=== PATIENT | female | born 1990 | race Caucasian/White ===

== ENCOUNTER 2019-06-26 07:04 | Emergency (ER) | payer OTHER ==
[~2019-06-26] VITALS: Ht 157.5 cm; Wt 65.0 kg
[2019-06-26] MEDS ORDERED: proparacaine 0.5% ophthalmic drops 15ml EACHEYE ONE (08:30)
[2019-06-26] MEDS ORDERED: proCHLORperazine 10 MG/2 ml inj IM ONE (08:30)
[2019-06-26] MEDS ORDERED: diphenhydrAMINE 50 mg/ml inj IM ONE (08:30)
--- NOTE | 2019-06-26 08:42 | NUR ---
VISUAL ACUITY COMPLETED, PT BACK TO BED AND BROUGHT TO CT NOW BY SERVICE PLUMBER PER ORDERS
[2019-06-26] MEDS ORDERED: IBUP-1984 PO (09:55)
[2019-06-26] MEDS ORDERED: AMOX-580 PO (09:55)
[2019-06-26 10:05] VITALS: BP 103/60
== END 2019-06-26 10:00 | disposition home or self-care (01) ==
LOC: ER 07:05
DX: J32.9 Chronic sinusitis, unspecified (principal); G43.909 Migraine, unspecified, not intractable, without status migrainosus; F12.90 Cannabis use, unspecified, uncomplicated; F15.90 Other stimulant use, unspecified, uncomplicated; Z98.890 Other specified postprocedural states; Z79.2 Long term (current) use of antibiotics; Z79.899 Other long term (current) drug therapy
CPT/HCPCS: 70450; 96372; 99284; J0780; J1200

== ENCOUNTER 2019-07-10 14:03 | Emergency (ER) | payer OTHER ==
[~2019-07-10] VITALS: Ht 157.5 cm; Wt 64.5 kg
[~2019-07-10 14:03] MED LIST: AMOX-580 PO; IBUP-1984 PO
[2019-07-10 14:23] VITALS: BP 111/72
== END 2019-07-10 15:27 | disposition home or self-care (01) ==
LOC: ER 14:05
DX: J32.9 Chronic sinusitis, unspecified (principal); F12.90 Cannabis use, unspecified, uncomplicated; F15.90 Other stimulant use, unspecified, uncomplicated; F17.210 Nicotine dependence, cigarettes, uncomplicated; Z90.89 Acquired absence of other organs
CPT/HCPCS: 99281

== ENCOUNTER 2021-10-02 22:49 | Emergency (ER) | payer SELFPAY ==
[~2021-10-02] VITALS: Ht 157.5 cm; Wt 68.2 kg
[2021-10-02 23:00] VITALS: BP 121/76
== END 2021-10-03 01:44 | disposition left against medical advice (07) ==
LOC: ER 22:49
DX: S61.412A Laceration without foreign body of left hand, initial encounter (principal); Z53.21 Procedure and treatment not carried out due to patient leaving prior to being seen by health care provider; X58.XXXA Exposure to other specified factors, initial encounter; Y93.9 Activity, unspecified; Y92.9 Unspecified place or not applicable; Y99.9 Unspecified external cause status

== ENCOUNTER 2024-04-26 22:02 | Emergency (ER) | payer MEDICAID ==
[~2024-04-26] VITALS: Ht 157.5 cm; Wt 89.0 kg
[2024-04-27] MEDS ORDERED: AZIT-164 PO (00:34)
[2024-04-27] MEDS ORDERED: DEC4T PO (00:34)
[2024-04-27] MEDS ORDERED: ALBU8HFA INH (00:39)
[2024-04-27] MEDS: albuterol 2.5 MG/3 ML nebule NEB ONE (00:48)
[2024-04-27 00:49] VITALS: PULSE 87; RESP 16; O2SAT 97
[2024-04-27 01:04] VITALS: PULSE 92; RESP 16; O2SAT 100
[2024-04-27] MEDS: azithromycin 250mg tablet PO ONE (01:06)
[2024-04-27] MEDS: DEXAMETHASONE 6 MG TABLET PO ONE (01:07)
[2024-04-27 01:31] VITALS: BP 97/60; PULSE 101; RESP 18; TEMP 98.3; O2SAT 98
== END 2024-04-27 01:35 | disposition home or self-care (01) ==
LOC: ER 22:02
DX: J40 Bronchitis, not specified as acute or chronic (principal); Z20.822 Contact with and (suspected) exposure to COVID-19; B34.9 Viral infection, unspecified; J18.1 Lobar pneumonia, unspecified organism; R51.9 Headache, unspecified; F12.90 Cannabis use, unspecified, uncomplicated; F15.90 Other stimulant use, unspecified, uncomplicated; Z79.2 Long term (current) use of antibiotics; Z79.899 Other long term (current) drug therapy; Z90.89 Acquired absence of other organs
CPT/HCPCS: 36415; 71045; 87811; 94640; 94760; 99284; J8540